=== PATIENT | female | born 2000 | race Caucasian/White ===

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

== ENCOUNTER 2019-03-26 16:14 | Emergency (ER) | payer OTHER ==
[~2019-03-26] VITALS: Ht 167.6 cm; Wt 63.0 kg
[2019-03-26 16:20] VITALS: Ht 167.6 cm; Wt 63.0 kg
[2019-03-26 19:03] VITALS: BP 103/69
== END 2019-03-26 19:03 | disposition home or self-care (01) ==
LOC: ED 16:14
DX: H66.42 Suppurative otitis media, unspecified, left ear (principal); Z98.890 Other specified postprocedural states
CPT/HCPCS: J2001